=== PATIENT | female | born 1990 | race Caucasian/White ===

== ENCOUNTER 2019-01-06 07:44 | Day surgery (SDC) | payer MEDICAID ==
[~2019-01-06] VITALS: Ht 167.6 cm; Wt 102.1 kg
[2019-01-06 08:05] LABS: HEMATOCRIT 39.7 % (36.0-48.0); HEMOGLOBIN 13.4 g/dL (12-16); MCH 27.5 pg (26.0-34.0); MCHC 33.8 g/dL (31.0-37.0); MCV 81.5 fL (80.0-100.0); MEAN PLATELET VOLUME 10.4 fL (7.4-10.4); RBC 4.87 10x6/uL (4.00-5.40); RDW 13.7 % (11.5-14.5); WBC 9.1 10x3/uL (4.8-10.8)
[2019-01-06 09:00] VITALS: BP 131/79; Ht 167.6 cm; Wt 102.1 kg
[2019-01-06] MEDS ORDERED: HYDROCODON-ACET15 ML PO (15:05)
--- NOTE | 2019-01-06 15:30 | NUR ---
PATIENT AMBULATES TO BATHROOM WITHOUT DIFFICULTY AND VOIDS IN TOILET. PIV DC'D WITH TIP INTACT
--- NOTE | 2019-01-06 15:41 | NUR ---
DISCHARGED HOME VIA WHEELCHAIR TO PRIVATE VEHICLE WITH SPOUSE
--- NOTE | 2019-01-09 10:26 | OP ---
PATIENT NAME: JOSELUIS ARCE MEDICAL RECORD: [id number] :86 LOCATION:[facility] ADMISSION DATE: SURGEON: BRANDT SANCHEZ MD DATE OF OPERATION: 01/06/2019 PREOPERATIVE DIAGNOSIS: Chronic tonsillitis. POSTOPERATIVE DIAGNOSIS: Chronic tonsillitis. PROCEDURE: Tonsillectomy. SURGEON: Brandt Sanchez MD ANESTHESIA: General orotracheal. BLOOD LOSS: 10 cc. SPECIMENS: Right and left tonsil. COMPLICATIONS: None. DISPOSITION: Recovery stable. DESCRIPTION OF PROCEDURE: She was brought to the operating room and placed in supine position, sedated and intubated by anesthesia. The table was turned 90 degrees. Head drapes were applied. She was positioned for tonsillectomy. Using a headlight, a Emily-Ricky mouth gag was carefully inserted and elevated on a towel on her chest. The palate was examined and palpated. It was normal. A red rubber catheter was placed through the right side of the nose into the pharynx and grasped with tonsil clamp to retract the soft palate. Using a mirror, the nasopharynx was examined. There was no significant adenoid tissue. Nasopharynx and choanae were normal bilaterally. The red rubber catheter was let down and removed. The right tonsil was grasped at the superior pole with a straight Allis clamp. She had copious large tonsilliths and debris in both tonsils of tremendous amounts. A spatula tip cautery on a setting of 10 was used to dissect out the tonsil along its capsule, preserving the anterior and posterior tonsillar pillar. The left tonsil was removed in the same fashion. Then, both sides of the nose were irrigated with saline. The pharynx was suctioned. Tonsillar fossae were agitated. Suction cautery on a setting of 20 was used to control the bleeding from both sides. Once the field was clean and dry, nose was irrigated again. Pharynx was suctioned. Tonsillar fossae were agitated. Again with the pharynx clean and dry, no bleeding. The Emily-Ricky mouth gag was let down and removed. She was awakened, extubated, and transported to recovery in good condition. No complications. TRANSINT:[id number] Voice Confirmation ID: [id number] DOCUMENT ID: [id number] OPERATIVE REPORT [id number] ARCE,CHRYSBRANDT DONOVAN MD at 1026 CC: [id number] DICTATION DATE: 01/06/19 1320 [employer] AUDITOR: 01/06/19 1353 [facility] [place] 01/06/19 [id number] [place] [address]
--- NOTE | 2019-01-09 10:26 | HP ---
PATIENT: JAGUAR ARCE MEDICAL RECORD: [id number] ACCOUNT: [id number] LOCATION:[facility] : 86 ADMISSION DATE: 01/06/19 PCP: ESME SCHMIDT MD HISTORY AND PHYSICAL EXAMINATION HISTORY: Jaguar is 28 years old. She has been having persistent problems with tonsillitis and tonsilliths. She is being admitted for tonsillectomy. PAST MEDICAL HISTORY: Otherwise negative. PAST SURGICAL HISTORY: Includes LEEP and tubal ligation. CURRENT MEDICATIONS: None. ALLERGIES: No known drug allergies. PHYSICAL EXAMINATION: GENERAL: She is healthy appearing and developmentally normal. FACE: Normal and symmetric. No lesions. EYES: Sclerae and conjunctivae are normal. EARS: Canals and TMs are normal. NOSE: No masses, polyps, or drainage. ORAL CAVITY AND OROPHARYNX: A 4+ tonsils with crypts and tonsilliths. NECK: No masses. No adenopathy. CHEST: Clear. CARDIOVASCULAR: Regular rate and rhythm. No murmur. EXTREMITIES: Normal. IMPRESSION: Chronic caseous tonsillitis and tonsillar hypertrophy. PLAN: Tonsillectomy. TRANSINT:[id number] Voice Confirmation ID: [id number] DOCUMENT ID: [id number] BRANDT LOCO MD at 1026 CC: [id number] DICTATION DATE: 01/04/19 155 FEATHER TRIMMER: 01/04/19 1612 [facility] 01/06/19 [facility] [address] [place] [address]
== END 2019-01-06 15:41 | disposition home or self-care (01) ==
LOC: D.OPS 07:44 → D.PAN 09:45 → D.OPS 11:00 → D.PAN 11:00 → D.OPS 15:41
PROVIDERS: Anesthesiology; ATTEND Otolaryngology
DX: J35.01 Chronic tonsillitis (principal)